=== PATIENT | female | born 1995 | race Caucasian/White ===

== ENCOUNTER 2016-10-03 14:03 | Emergency (ER) | payer OTHER ==
[2016-10-03] MEDS ORDERED: ACETAMINOPHEN 325 MG TABLET PO ONE (14:30)
[2016-10-03] MEDS ORDERED: ONDANSETRON 4 MG TAB.RAPDIS PO ONE (14:30)
--- NOTE | 2016-10-03 14:30 | ER Document Report ---
ED Medical Screen (RME) - General Stated Complaint: BACK PAIN Mode of Arrival: Ambulatory Information source: Patient Notes: Patient claims of lower back pain for the past several days. Patient reports nausea due to pain. No fever. Patient complains of some with urination. hx: Frequent kidney infections. I have greeted and performed a rapid initial assessment of this patient. A comprehensive ED assessment and evaluation of the patient, analysis of test results and completion of the medical decision making process will be conducted by additional ED providers. TRAVEL OUTSIDE OF THE [place] IN LAST 30 DAYS: No - Related Data Allergies/Adverse Reactions: latex [Latex] Allergy (Severe, Verified 10/03/16 14:26) Blisters Physical Exam - Vital signs Vitals: Temp Pulse Resp BP Pulse Ox 98.5 F 88 16 115/74 100 10/03/16 14:19 10/03/16 14:19 10/03/16 14:19 10/03/16 14:19 10/03/16 14:19 - Back Back: CVA tenderness - Bilateral Course - Vital Signs Vital signs: Temp Pulse Resp BP Pulse Ox 98.5 F 88 16 115/74 100 10/03/16 14:19 10/03/16 14:19 10/03/16 14:19 10/03/16 14:19 10/03/16 14:19
[2016-10-03 16:29] LABS: APPEARANCE,URINE TURBID; BILIRUBIN,URINE NEGATIVE (NEGATIVE); GLUCOSE, URINE NEGATIVE (NEGATIVE); KETONES,URINE NEGATIVE (NEGATIVE); LEUKOCYTE ESTERASE,URINE LARGE (NEGATIVE); NITRITE,URINE NEGATIVE (NEGATIVE); PROTEIN,URINE 30 mg/dL (NEGATIVE); URINE SPECIFIC GRAVITY 1.013; UROBILINOGEN,URINE NEGATIVE mg/dL (<2.0)
--- NOTE | 2016-10-03 17:49 | ER Document Report ---
ED GI/ - General Chief Complaint: Flank Pain Stated Complaint: BACK PAIN Time seen by provider: 17:49 Mode of Arrival: Ambulatory Information source: Patient Notes: 21-year-old female complaining of left-sided back pain that started 3 days ago and it has slowly radiated to over to the right side. She is from [facility] but she is here visiting. The Tylenol is not helped with the back pain. It is worse when she moves. No saddle anesthesia or radiculopathy. She started having dysuria this morning. Her urinalysis shows 82 white blood cells. Urine culture has been added. This patient has chronic urinary tract infection and she was treated with Rocephin IV for 4 days 3 weeks ago in [place]. Her vital signs are stable. I canceled the CBC and chemistry that were ordered in triage. I did add a urine test. The nurses were having difficulty obtaining blood specimen. TRAVEL OUTSIDE OF THE [place] IN LAST 30 DAYS: No - Related Data Allergies/Adverse Reactions: latex [Latex] Allergy (Severe, Verified 10/03/16 14:26) Blisters Past Medical History - General Information source: Patient - Social History Smoking Status: Current Every Day Smoker Chew tobacco use (# tins/day): Yes Frequency of alcohol use: None Drug Abuse: None Lives with: Spouse/Significant other Family History: Reviewed & Not Pertinent Patient has suicidal ideation: No Patient has homicidal ideation: No Renal/ Medical History: Reports: Other - Chronic urinary tract infections. Denies: Hx Peritoneal Dialysis Surgical Hx: Negative - Immunizations Hx Diphtheria, Pertussis, Tetanus Vaccination: Yes Review of Systems - Review of Systems Constitutional: No symptoms reported EENT: No symptoms reported Cardiovascular: No symptoms reported Respiratory: No symptoms reported Gastrointestinal: No symptoms reported Genitourinary: No symptoms reported Female Genitourinary: See HPI Musculoskeletal: See HPI Skin: No symptoms reported Hematologic/Lymphatic: No symptoms reported Neurological/Psychological: No symptoms reported Physical Exam - Vital signs Vitals: Temp Pulse Resp BP Pulse Ox 98.5 F 88 16 115/74 100 10/03/16 14:19 10/03/16 14:19 10/03/16 14:19 10/03/16 14:19 10/03/16 14:19 Interpretation: Normal - General General appearance: Appears well, Alert In distress: None - HEENT Head: Normocephalic, Atraumatic Eyes: Normal Conjunctiva: Normal Pupils: PERRL - Respiratory Respiratory status: No respiratory distress Chest status: Nontender Breath sounds: Normal Chest palpation: Normal - Cardiovascular Rhythm: Regular Heart sounds: Normal auscultation Murmur: No - Abdominal Inspection: Normal Distension: No distension Bowel sounds: Normal Tenderness: Nontender. No: Tender Organomegaly: No organomegaly - Back Back: Normal, Tender - Bilateral lumbar muscles. No: CVA tenderness, Vertebra tenderness - Extremities General upper extremity: Normal inspection, Nontender, Normal color, Normal ROM , Normal temperature General lower extremity: Normal inspection, Nontender, Normal color, Normal ROM , Normal temperature, Normal weight bearing. No: Jose's sign - Neurological Neuro grossly intact: Yes Cognition: Normal Orientation: AAOx4 Flo Coma Scale Eye Opening: Spontaneous Flo Coma Scale Verbal: Oriented Flo Coma Scale Motor: Obeys Commands Flo Coma Scale Total: 15 Speech: Normal Motor strength normal: LUE, RUE, LLE, RLE Sensory: Normal - Psychological Associated symptoms: Normal affect, Normal mood - Skin Skin Temperature: Warm Skin Moisture: Dry Skin Color: Normal Skin irregularity: negative: Rash Course - Re-evaluation Re-evalutation: 10/03/16 18:13 Vitals are stable and I explained the plan to the patient.I have consulted with the supervisory physician per [facility] Guidelines., dr [email or web address]. I will treat her with Motrin Tylenol for back pain if the urine is negative. 10/03/16 18:38 Dizzy test is negative [place] send her home as planned. 10/03/16 18:38 - Vital Signs Vital signs: Temp Pulse Resp BP Pulse Ox 98.1 F 69 16 102/63 100 10/03/16 18:16 10/03/16 18:16 10/03/16 18:16 10/03/16 18:16 10/03/16 18:16 - Laboratory Laboratory results interpreted by me: 10/03/16 15:15 Urine Protein 30 H Urine Blood MODERATE H Ur Leukocyte Esterase LARGE H Discharge - Discharge Clinical Impression: muscular low back pain Urinary tract infection Qualifiers: Urinary tract infection type: acute cystitis Hematuria presence: without hematuria Qualified Code(s): N30.00 - Acute cystitis without hematuria Condition: Good Disposition: HOME, SELF-CARE Instructions: Cephalexin ([facility]), Low Back Pain ([facility]), Urinary Tract Infection ( [facility]), Muscle Strain ([facility]), Myalagia (Muscle Pain) ([facility]) Additional Instructions: warm compress to back lumbar muscles to er if worse drink 2 liters of water daily urine culture is pending Prescriptions: Ibuprofen [Motrin 600 mg Tablet] 600 mg PO Q8HP PRN #30 tablet PRN Reason: Cephalexin [Cephalexin 500 MG Tablet] 500 mg PO QID #30 tablet
[2016-10-03] MEDS ORDERED: CEPHALEXIN 500 MG CAPSULE PO ONE (18:12)
[2016-10-03 18:17] VITALS: BP 102/63
== END 2016-10-03 18:58 | disposition home or self-care (01) ==
LOC: ER 14:03
DX: M54.5 Low back pain (principal); R10.9 Unspecified abdominal pain; M54.9 Dorsalgia, unspecified; F17.210 Nicotine dependence, cigarettes, uncomplicated
CPT/HCPCS: 99284; 87086; 81025; 87088; 81001; 87186; S0119